=== PATIENT | female | born 1970 | race Caucasian/White ===

== ENCOUNTER 2018-02-16 05:17 | Observation (INO) | payer OTHER ==
[2018-02-13 16:53] LABS: BASOPHILS % (AUTO) 0.6 % (0-1); EOSINOPHILS # (AUTO) 0.1 X10'3 (0-0.9); EOSINOPHILS % (AUTO) 1.8 % (0-6); LYMPHOCYTES # (AUTO) 1.6 X10'3 (1.1-4.8); LYMPHOCYTES % (AUTO) 21.2 % (21-51); MEAN CORPUSCULAR HEMOGLOBIN 30.7 PG (27.0-31.0); MEAN PLATELET VOLUME 9.2 FL (7.4-10.4); MONOCYTES # (AUTO) 0.4 X10'3 (0-0.9); NEUTROPHILS # (AUTO) 5.2 X10'3 (1.8-7.7); NEUTROPHILS % (AUTO) 71.4 % (42-75); PLATELET COUNT 269 X10'3 (140-440); RED BLOOD COUNT 4.88 X10'6 (4.20-5.60); RED CELL DISTRIBUTION WIDTH 14.4 % (11.5-14.5); WHITE BLOOD COUNT 7.3 X10'3 (4.5-11.0)
[2018-02-13 17:06] LABS: ALBUMIN 3.6 G/DL (3.4-5.0); ALKALINE PHOSPHATASE 73 IU/L (46-116); BLOOD UREA NITROGEN 12 MG/DL (7-18); BUN/CREATININE RATIO 20.3 (6.6-38.0); CHLORIDE 104 MMOL/L (99-107); CREATININE 0.59 MG/DL (0.40-0.90); PRE OP ALT 40 U/L (30-65); PRE OP ANION GAP 10 (8-16); PRE OP AST 21 U/L (10-37); PRE OP BILIRUB, TOTAL 0.2 MG/DL (0.0-1.0); PRE OP GLUCOSE 108 MG/DL (70-104); PRE OP SODIUM 140 MMOL/L (135-145); TOTAL PROTEIN 7.1 G/DL (6.4-8.2); eGFR > 90 ML/MIN
[2018-02-13 17:13] LABS: PRE OP POTASSIUM 3.3 MMOL/L (3.4-5.1)
[2018-02-16] VITALS (18 sets, daily range): BP systolic 113–180; BP diastolic 62–85
[~2018-02-16] VITALS: Ht 157.5 cm; Wt 73.0 kg
[~2018-02-16 05:17] MED LIST: NO HOME MEDS; ringers solution, lacted 1,000 ML IV SCH
[2018-02-16] MEDS ORDERED: ceFOXitin 2 GM ADDvantage bag 100 ML IV ONE (05:30)
[2018-02-16] MEDS ORDERED: famotidine 20mg tablet PO ONE (05:30)
[2018-02-16] MEDS ORDERED: LIDOcaine 1% (10mg/ml) 2ml vial ONE ×2 (06:05→06:39)
[2018-02-16] MEDS ORDERED: BUPIVAcaine/PF 2.5mg/ml (0.25%) 10ml vial ONE ×3 (06:39→08:49)
[2018-02-16] MEDS ORDERED: epiNEPHrine 1 mg/ml inj ONE (06:39)
[2018-02-16] MEDS ORDERED: scopolamine 1.5mg patch.TD72 TD ONE (07:14)
[2018-02-16] MEDS ORDERED: LIDOcaine 1% 30ml preserv. free vial ONE (07:20)
[2018-02-16] MEDS ORDERED: fentaNYL/PF 50MCG/1 ML 2ML syringe ONE (07:28)
[2018-02-16] MEDS ORDERED: dexamethasone sod phosphate 4mg/ml inj. ONE (07:28)
[2018-02-16] MEDS ORDERED: rocuronium 10mg/ml inj IV ONE (07:28)
[2018-02-16] MEDS ORDERED: midazolam 2 mg/2 ml injection ONE (07:28)
[2018-02-16] MEDS ORDERED: propofol inj 20 ML IV ONE (07:28)
[2018-02-16] MEDS ORDERED: ringers solution, lacted 1,000 ML IV SCH (08:12)
[2018-02-16] MEDS ORDERED: fluconazole in saline, iso-osm 100mg/50ml Premix IV ONE (08:14)
[2018-02-16] MEDS ORDERED: sevoflurane 250ml liquid IH ONE (08:14)
[2018-02-16] MEDS ORDERED: morphine 4 MG/ML inj SYRINge IV PRN ×2 (08:15)
[2018-02-16] MEDS ORDERED: ondansetron/PF 4mg/2ml inj IV PRN ×2 (08:15→10:30)
[2018-02-16] MEDS ORDERED: meperidine/PF 25mg/ml syringe IV PRN ×3 (08:15)
[2018-02-16] MEDS ORDERED: proCHLORperazine 10 MG/2 ml inj IV PRN (08:15)
[2018-02-16] MEDS ORDERED: ondansetron/PF 4mg/2ml inj ONE (08:33)
[2018-02-16] MEDS ORDERED: BUPIVAcaine/PF 7.5mg/ml (0.75%) 10ml vial ONE (08:44)
[2018-02-16] MEDS ORDERED: glycopyrrolate 0.2mg/ml inj ONE (10:21)
[2018-02-16] MEDS ORDERED: neostigmine methylsulfate 1 MG/ML 10ml vial ONE (10:21)
[2018-02-16] MEDS: ringers solution, lacted 1,000 ML IV SCH ×2 (10:29→17:06)
[2018-02-16] MEDS ORDERED: oxyCODONE/APAP 5-325mg tablet PO PRN (10:30)
[2018-02-16] MEDS ORDERED: diphenhydrAMINE 50 mg/ml inj IV PRN (10:30)
[2018-02-16] MEDS ORDERED: naloxone 0.4 mg/ml inj IV PRN (10:30)
[2018-02-16] MEDS ORDERED: CADD PCA waste documentation MC PRN (10:30)
[2018-02-16] MEDS ORDERED: LORazepam 2 mg/ml vial IV PRN (10:30)
[2018-02-16] MEDS ORDERED: normal saline 500ml IV soln 500 ML IV PRN (10:30)
[2018-02-16] MEDS ORDERED: metoclopramide 5 mg/ml inj IV PRN (10:30)
[2018-02-16] MEDS ORDERED: mag hydrox/Alum hydrox/simeth 30ml oral suspension PO PRN (10:30)
[2018-02-16] MEDS ORDERED: ketorolac trometh. 30mg/ml inj. IV PRN (10:30)
[2018-02-16] MEDS ORDERED: temazepam 15mg capsule PO PRN (10:30)
[2018-02-16] MEDS: HYDROmorphone/NS 1 mg/ml CADD 50 ML IV SCH ×7 (11:07→23:00)
[2018-02-16] MEDS: simethicone 80mg chew tab PO SCH ×2 (12:36→17:15)
[2018-02-16] MEDS: docusate sod 100mg capsule PO SCH (19:04)
[2018-02-17] VITALS: BP 101/57
[2018-02-17] MEDS: HYDROmorphone/NS 1 mg/ml CADD 50 ML IV SCH ×4 (01:00→07:00)
[2018-02-17] MEDS: ringers solution, lacted 1,000 ML IV SCH ×2 (01:30→10:29)
[2018-02-17 06:34] LABS: ALBUMIN 2.9 G/DL (3.4-5.0); ANION GAP 7 (8-16); BLOOD UREA NITROGEN 8 MG/DL (7-18); BUN/CREATININE RATIO 15.7 (6.6-38.0); CHLORIDE 105 MMOL/L (99-107); CREATININE 0.51 MG/DL (0.40-0.90); GLUCOSE 112 MG/DL (70-104); POTASSIUM 3.8 MMOL/L (3.5-5.1); SODIUM 140 MMOL/L (135-145); TOTAL CARBON DIOXIDE 28.5 MMOL/L (24-32); eGFR > 90 ML/MIN
[2018-02-17 06:43] LABS: BASOPHILS % (AUTO) 0.3 % (0-1); EOSINOPHILS # (AUTO) 0.1 X10'3 (0-0.9); EOSINOPHILS % (AUTO) 0.8 % (0-6); HEMATOCRIT 37.7 % (35.0-45.0); HEMOGLOBIN 12.3 g/dl (12.0-16.0); LYMPHOCYTES # (AUTO) 1.3 X10'3 (1.1-4.8); LYMPHOCYTES % (AUTO) 12.5 % (21-51); MEAN CORPUSCULAR HEMOGLOBIN 29.8 PG (27.0-31.0); MEAN CORPUSCULAR HGB CONC 32.7 % (33.0-36.5); MEAN CORPUSCULAR VOLUME 91.1 FL (78-98); MEAN PLATELET VOLUME 9.4 FL (7.4-10.4); MONOCYTES # (AUTO) 0.9 X10'3 (0-0.9); MONOCYTES % (AUTO) 8.4 % (2-12); NEUTROPHILS # (AUTO) 8.2 X10'3 (1.8-7.7); PLATELET COUNT 244 X10'3 (140-440); RED BLOOD COUNT 4.13 X10'6 (4.20-5.60); WHITE BLOOD COUNT 10.5 X10'3 (4.5-11.0)
[2018-02-17 07:00] VITALS: BP 124/75
[2018-02-17] MEDS: docusate sod 100mg capsule PO SCH (07:33)
[2018-02-17] MEDS: simethicone 80mg chew tab PO SCH (07:33)
[2018-02-17] MEDS: oxyCODONE/APAP 5-325mg tablet PO PRN ×2 (07:34→11:18)
[2018-02-17 10:48] VITALS: BP 120/66
[2018-02-17 11:00] VITALS: BP 120/66
== END 2018-02-17 14:20 | disposition home or self-care (01) ==
LOC: PAS 05:17 → SUR 3N 10:29 → PAS IN 12:00 → UNDOADMOB 12:00
PROVIDERS: ADMIT Obstetrics & Gynecology; ATTEND Obstetrics & Gynecology
DX: N92.0 Excessive and frequent menstruation with regular cycle (principal); N88.8 Other specified noninflammatory disorders of cervix uteri; N39.3 Stress incontinence (female) (male); Z98.51 Tubal ligation status
CPT/HCPCS: 36415; 51992; 58552; 80047; 80048; 80053; 85025; 85610; 85730; 86885; 86900; 86901; 96374; 96375; A4355; C1758; C1771; G0378; J0171; J0694; J1100; J1170; J1450; J2175; J2250; J2405; J2704; J2710; J2765; J3010; J3490; J7030; J7120; A6250; A7000